=== PATIENT | female | born 1940 | race Caucasian/White ===

== ENCOUNTER 2021-10-28 23:14 | Emergency (ER) | payer MEDICARE ==
[~2021-10-28 23:14] MED LIST: Iopamidol 370 76% 125 ML VIAL FS ONE
[2021-10-28] MEDS ORDERED: Albuterol Sulfate 2.5 mg/0.5 ml Neb ONE (23:32)
[2021-10-28] MEDS ORDERED: Furosemide 40 MG/4 ML VIAL ONE (23:45)
[2021-10-29 00:01] LABS: Chloride 86 mmol/L (98-107)
[2021-10-29 00:04] LABS: Band 6 % (5-11); Hypochromia SLIGHT = 6-15 cells (100X) (0-5/hpf); Lymphocytes 4 % (21-51); MDiff Complete? YES; Mean Corpuscular HGB CONC 31.4 g/dL (32.0-36.0); Mean Corpuscular Hemoglobin 28.6 pg (27.0-31.0); Mean Corpuscular Volume 91.2 fL (78.0-98.0); Mean Platelet Volume 6.3 fL (7.4-10.4); Metamyelocyte 1 % (0-0); Monocytes 11 % (0-10); Neutrophil 78 % (42-75); Platelet Count 423 thou/uL (130-400); Polychromasia SLIGHT = 2-3 cells (100X) (0-2/hpf); RBC Distribution Width 14.8 % (11.5-14.5); Red Blood Cell (RBC) Count 3.16 mill/uL (4.20-5.40); White Blood Cell (WBC) Count 23.7 thou/uL (4.8-10.8)
[2021-10-29 00:10] LABS: Digoxin 1.41 ng/mL (0.8-2.0)
[2021-10-29 00:30] LABS: ALT (SGPT) 19 U/L (8-55); AST (SGOT) 38 U/L (5-34); Albumin 2.8 g/dL (3.4-4.8); Alkaline Phosphatase 86 U/L (40-110); Anion Gap 18 mmol/L (10-20); BUN (Urea Nitrogen) 38 mg/dL (9.8-20.1); Bilirubin, Total 0.6 mg/dL (0.2-1.2); Calc. Creatinine Clearance 0 mL/min (70-130); Calcium 9.9 mg/dL (7.8-10.44); Carbon Dioxide 36 mmol/L (23-31); Chloride 88 mmol/L (98-107); Globulin 4.1 g/dL (2.4-3.5); Glucose 180 mg/dL (83-110); Potassium 5.6 mmol/L (3.5-5.1); Protein, Total 6.9 g/dL (5.8-8.1); Sodium 136 mmol/L (136-145)
[2021-10-29] MEDS ORDERED: Doxycycline 100 MG CAP ONE (00:33)
[2021-10-29] MEDS ORDERED: Sodium Chloride 0.9% 100 ML ONE (00:33)
[2021-10-29] MEDS ORDERED: Cefepime 2 GM VIAL ONE (00:33)
[2021-10-29] MEDS ORDERED: Sodium Chloride 0.9% 250 ML 500 ML ONE (01:04)
[2021-10-29 01:32] LABS: SARS-CoV-2 NAA Rapid Test Not Detected (NotDetected)
[2021-10-29 03:06] LABS: Base Excess-Venous 10.1 mmol/L (-2.0 to 3.0); Bicarbonate (HCO3v) 39.6 mmol/L (22.0-28.0); CO2 Tension (PvCO2) 87.3 mmHg (42.0-51.0); Hemoglobin - Calc 10.2 g/dL (12.0-16.0); Potassium 5.2 mmol/L (3.5-5.1); Sodium 137 mmol/L (138-145); T. Carbon Dioxide 42.3 mmol/L (22.0-28.0); vO2 Saturation-calc 63.6 % (60.0-85.0)
[2021-10-29 03:23] LABS: CO2 Tension (PvCO2) 87.3 mmHg (42.0-51.0)
[2021-10-29 03:24] LABS: Base Excess-Venous 10.1 mmol/L (-2.0 to 3.0); Bicarbonate (HCO3v) 39.6 mmol/L (22.0-28.0); vO2 Saturation-calc 63.6 % (60.0-85.0)
[2021-10-29 03:25] LABS: Chloride 86 mmol/L (98-107); Hemoglobin - Calc 10.2 g/dL (12.0-16.0); Potassium 5.2 mmol/L (3.5-5.1); Sodium 137 mmol/L (138-145); T. Carbon Dioxide 42.3 mmol/L (22.0-28.0)
== END 2021-10-29 04:22 | disposition short-term general hospital (02) ==
LOC: MADERS 23:14
DX: J18.9 Pneumonia, unspecified organism (principal); D64.9 Anemia, unspecified; C34.91 Malignant neoplasm of unspecified part of right bronchus or lung; E87.5 Hyperkalemia; E87.3 Alkalosis; R09.02 Hypoxemia; I48.91 Unspecified atrial fibrillation; I10 Essential (primary) hypertension; Z20.822 Contact with and (suspected) exposure to COVID-19; Z87.891 Personal history of nicotine dependence; Z79.01 Long term (current) use of anticoagulants; Z79.899 Other long term (current) drug therapy
CPT/HCPCS: 70450; 71045; 71275; 80053; 80162; 82330; 82435 ×2; 82803; 83605; 83735; 83880; 84132 ×2; 84295 ×2; 84484; 85014 ×2; 85025; 87040; 93005; 94760; U0002; 96365; 96366; 96375; J0692; J1940; J3370; J7050; J7611; J7620; Q9967